=== PATIENT | male | born 1955 | race Caucasian/White ===

== ENCOUNTER 2020-06-28 18:15 | Outpatient (REF) | payer MEDICARE, SELFPAY ==
[2020-06-28 23:06] LABS: ALT 27 U/L (16-63); AST 19 U/L (15-37); Albumin 3.9 g/dL (3.4-5.0); Alkaline Phosphatase 64 U/L (46-116); BUN 12 mg/dL (7-18); Bilirubin, Total 0.5 mg/dL (0.2-1.0); CREATININE 0.71 mg/dL (0.70-1.30); Calcium 9.2 mg/dL (8.5-10.1); Calculated LDL 118 mg/dL (<100); Chloride 103 mmol/L (98-107); Cholesterol 187 mg/dL (<200); Glucose 75 mg/dL (74-106); HDL Cholesterol 56 mg/dL (40-60); Potassium 4.4 mmol/L (3.5-5.1); Sodium 139 mmol/L (136-145); Triglyceride 67 mg/dL (<150); Vitamin B12 389 pg/mL (193-986)
[2020-06-28 23:20] LABS: Anion Gap 6.5 mmol/L (3-11); CO2 29.5 mmol/L (21.0-32.0); Total Protein 6.7 g/dL (6.4-8.2)
[2020-06-28 23:57] LABS: Vitamin D 25 Total 26.9 ng/ml (30-100)
[2020-06-30 10:15] LABS: Hepatitis C Ab w Rflx HCV PCR Negative (Negative)
== END 2020-06-28 18:35 ==
LOC: NCHCN 18:15
PROVIDERS: PCP Internal Medicine; Visit Provider Nurse Practitioner Family
DX: E55.9 Vitamin D deficiency, unspecified (principal); E78.89 Other lipoprotein metabolism disorders; G62.9 Polyneuropathy, unspecified; Z82.49 Family history of ischemic heart disease and other diseases of the circulatory system; Z11.59 Encounter for screening for other viral diseases
CPT/HCPCS: 80053; 80061; 82306; 86803; 82607

== ENCOUNTER 2021-05-02 15:37 | Outpatient (REF) | payer OTHER, SELFPAY ==
[2021-05-02 22:21] LABS: HCT 44.9 % (40.0-50.0); HGB 13.9 g/dL (13.5-17.5); MCH 24.6 pg (27.0-33.0); MCV 79.5 fL (80-95); MPV 10.8 fL (8.0-11.0); Platelet Count 223 10^3/uL (130-400); RBC 5.65 10^6/uL (4.36-5.78); RDW 13.6 % (11.8-14.1); RDW-SD 39.4 fL; WBC 5.96 10^3/uL (4.4-10.8)
[2021-05-02 22:57] LABS: TSH (W/Ref FT4) 1.15 uIU/mL (0.36-3.74); Vitamin B12 386 pg/mL (193-986)
== END 2021-05-02 15:38 | disposition home or self-care (01) ==
LOC: NCHCN 15:37
PROVIDERS: PCP Internal Medicine; Visit Provider Nurse Practitioner Family
DX: E78.5 Hyperlipidemia, unspecified (principal); G60.9 Hereditary and idiopathic neuropathy, unspecified
CPT/HCPCS: 85027; 82607; 82746; 84443

== ENCOUNTER 2021-08-01 15:07 | Outpatient (REF) | payer MEDICARE, SELFPAY ==
[2021-08-01 17:43] LABS: Calculated LDL 123 mg/dL (<100); Cholesterol 188 mg/dL (<200); HDL Cholesterol 52 mg/dL (40-60); Triglyceride 68 mg/dL (<150)
== END 2021-08-01 15:08 | disposition home or self-care (01) ==
LOC: NCHCN 15:07
PROVIDERS: PCP Internal Medicine; Visit Provider Nurse Practitioner Family
DX: Z00.00 Encounter for general adult medical examination without abnormal findings (principal); Z82.49 Family history of ischemic heart disease and other diseases of the circulatory system; E78.5 Hyperlipidemia, unspecified
CPT/HCPCS: 80061

== ENCOUNTER 2023-01-25 12:35 | Outpatient (REF) | payer MEDICARE, SELFPAY ==
[2023-01-25 16:15] LABS: ALT 22 U/L (16-63); AST 22 U/L (15-37); Albumin 3.6 g/dL (3.4-5.0); Alkaline Phosphatase 61 U/L (46-116); Anion Gap 3.9 mmol/L (3-11); BUN 11 mg/dL (7-18); Bilirubin, Total 0.8 mg/dL (0.2-1.0); CO2 30.1 mmol/L (21.0-32.0); CREATININE 0.9 mg/dL (0.70-1.30); Calcium 9.2 mg/dL (8.5-10.1); Calculated LDL 107 mg/dL (<100); Chloride 104 mmol/L (98-107); Cholesterol 171 mg/dL (<200); Estimated GFR 93.03 (mL/min/1.73m2); Glucose 86 mg/dL (74-106); HDL Cholesterol 56 mg/dL (40-60); Potassium 4.2 mmol/L (3.5-5.1); Sodium 138 mmol/L (136-145); Total Protein 6.6 g/dL (6.4-8.2); Triglyceride 44 mg/dL (<150)
== END 2023-01-25 12:36 | disposition home or self-care (01) ==
LOC: NCHCN 12:35
PROVIDERS: PCP Internal Medicine; Visit Provider Family Medicine
DX: E55.9 Vitamin D deficiency, unspecified (principal); R73.03 Prediabetes; E78.89 Other lipoprotein metabolism disorders
CPT/HCPCS: 80053; 80061

== ENCOUNTER 2023-09-04 12:37 | Outpatient (REF) | payer MEDICARE, SELFPAY ==
[2023-09-04 20:57] LABS: Abs Immature Grans 0.01 10^3/uL (0.0-0.06); Absolute Basophil Count 0.05 10^3/uL (0.0-0.2); Absolute Eosinophil Count 0.13 10^3/uL (0.0-0.7); Absolute Lymphocyte Count 2.59 10^3/uL (1.2-3.4); Absolute Monocyte Count 0.63 10^3/uL (0.1-0.8); Absolute Neutrophil Count 2.56 10^3/uL (1.2-6.7); Basophils % 0.8; Eosinophils % 2.2; HCT 45.3 % (40.0-50.0); HGB 14.4 g/dL (13.5-17.5); Immature Grans % 0.2; Lymphocytes % 43.4; MCH 24.7 pg (27.0-33.0); MCHC 31.8 % (32.0-36.0); MCV 78 fL (80-95); MPV 10.3 fL (8.0-11.0); Monocytes % 10.6; Neutrophils % 42.8; Platelet Count 253 10^3/uL (130-400); RBC 5.83 10^6/uL (4.36-5.78); RDW 13.7 % (11.8-14.1); RDW-SD 38.5 fL; WBC 5.97 10^3/uL (4.4-10.8)
== END 2023-09-04 12:38 | disposition home or self-care (01) ==
LOC: NCHCN 12:37
PROVIDERS: PCP Internal Medicine; Visit Provider Family Medicine
DX: L29.8 Other pruritus (principal)
CPT/HCPCS: 85025

== ENCOUNTER 2023-10-01 15:46 | Outpatient (REF) | payer MEDICARE, SELFPAY ==
[2023-10-01 21:37] LABS: Iron 127 ug/dL (65-175); Total Iron Binding Capacity 295 ug/dL (250-450); Transferrin Sat 43 % (20-55)
[2023-10-01 21:51] LABS: Ferritin 172 ng/mL (26-388)
== END 2023-10-01 15:47 | disposition home or self-care (01) ==
LOC: NCHCN 15:46
PROVIDERS: PCP Internal Medicine; Visit Provider Family Medicine
DX: R71.8 Other abnormality of red blood cells (principal)
CPT/HCPCS: 82728; 83540; 83550

== ENCOUNTER 2025-03-02 13:27 | Outpatient (REF) | payer MEDICARE, SELFPAY ==
[2025-03-02 15:22] LABS: HCT 44.7 % (40.0-50.0); HGB 14.1 g/dL (13.5-17.5); MCH 24.8 pg (27.0-33.0); MCHC 31.5 % (32.0-36.0); MCV 79 fL (80-95); MPV 10.7 fL (8.0-11.0); Platelet Count 219 10^3/uL (130-400); RBC 5.69 10^6/uL (4.36-5.78); RDW 14.1 % (11.8-14.1); RDW-SD 39.7 fL; WBC 4.68 10^3/uL (4.4-10.8)
[2025-03-02 16:44] LABS: ALT 25 U/L (16-63); AST 23 U/L (15-37); Albumin 3.6 g/dL (3.4-5.0); Alkaline Phosphatase 69 U/L (46-116); Anion Gap 4.1 mmol/L (3-11); BUN 18 mg/dL (7-18); Bilirubin, Total 0.7 mg/dL (0.2-1.0); CO2 30.9 mmol/L (21.0-32.0); CREATININE 0.8 mg/dL (0.70-1.30); Calcium 9.3 mg/dL (8.5-10.1); Calculated LDL 109 mg/dL (<100); Chloride 105 mmol/L (98-107); Cholesterol 173 mg/dL (<200); Estimated GFR 94.62 (mL/min/1.73m2); Glucose 86 mg/dL (74-106); HDL Cholesterol 54 mg/dL (>or=40); Potassium 4.5 mmol/L (3.5-5.1); Sodium 140 mmol/L (136-145); Total Protein 6.7 g/dL (6.4-8.2); Triglyceride 54 mg/dL (<150)
== END 2025-03-02 13:28 | disposition home or self-care (01) ==
LOC: NCHCN 13:27
PROVIDERS: PCP Internal Medicine; Visit Provider Family Medicine
DX: E78.5 Hyperlipidemia, unspecified (principal); R42 Dizziness and giddiness
CPT/HCPCS: 80053; 80061; 85027

== ENCOUNTER 2025-06-11 09:29 | Outpatient (REF) | payer MEDICARE, SELFPAY ==
[2025-06-11 15:36] LABS: Calculated LDL 57 mg/dL (<100); Cholesterol 124 mg/dL (<200); HDL Cholesterol 57 mg/dL (>or=40); Triglyceride 50 mg/dL (<150)
== END 2025-06-11 09:30 | disposition home or self-care (01) ==
LOC: NCHCN 09:29
PROVIDERS: PCP Internal Medicine; Visit Provider Family Medicine
DX: E78.5 Hyperlipidemia, unspecified (principal)
CPT/HCPCS: 80061